=== PATIENT | male | born 1970 | race Caucasian/White ===

== ENCOUNTER 2019-11-22 05:32 | Emergency (ER) | payer SELFPAY ==
[~2019-11-22] VITALS: Ht 180.3 cm; Wt 72.6 kg
--- NOTE | 2019-11-22 06:00 | NUR ---
Dr. Obando at bedside for MSE.
[2019-11-22] MEDS ORDERED: SULFAMETH/TRIMETH 800/160 MG TABLET ONE (06:08)
[2019-11-22] MEDS ORDERED: SULFAMETH/TRIMETH 800/160 MG TABLET PO ONE (06:15)
[2019-11-22] MEDS ORDERED: OXYCODONE/APAP 5-325 MG TABLET PO ONE (06:15)
[2019-11-22] MEDS ORDERED: OXYCODONE/APAP 5-325 MG TABLET ONE (06:16)
--- NOTE | 2019-11-22 06:17 | NUR ---
Patient given written and verbal discharge instructions. Patient verbalizes understanding of instructions. Patient is ambulatory with steady gait. Refuses offer of detention placement. Patient given list of available shelters in surrounding area. Pt provided with food per pt request, and will arrange own transportation, refused all other services at this time. VSS, all belongings taken, no acute signs of distress.
[2019-11-22 06:19] VITALS: BP 120/81
== END 2019-11-22 06:20 | disposition home or self-care (01) ==
LOC: ER 05:41
DX: L02.411 Cutaneous abscess of right axilla (principal); Z59.0 Homelessness
CPT/HCPCS: A4663

== ENCOUNTER 2020-06-14 17:38 | Inpatient (IN) | payer MEDICARE ==
[~2020-06-14] VITALS: Ht 180.3 cm; Wt 69.2 kg
--- NOTE | 2020-06-14 18:57 | NUR ---
at bedside for assessment
[2020-06-14] MEDS ORDERED: IV NS 1000 ML 1,000 ML IV ONE (19:00)
[2020-06-14] MEDS: VANCOMYCIN 1G/D5W 200 ML PIGGYBACK IV ONE ×2 (19:00→19:27)
[2020-06-14] MEDS ORDERED: MORPHINE SULFATE 4 MG/1 ML DISP.SYRIN IV ONE (19:00)
[2020-06-14] MEDS ORDERED: CEFTRIAXONE 1 G in IV DEXTROSE 5% 50 ML IV ONE (19:00)
[2020-06-14] MEDS ORDERED: MORPHINE SULFATE 4 MG/1 ML DISP.SYRIN ONE (19:05)
[2020-06-14] MEDS ORDERED: VANCOMYCIN IV 200 ML ONE (19:05)
[2020-06-14] MEDS ORDERED: CEFTRIAXONE /D5W 50ML IVPB **ER PYXIS IV ONE (19:06)
--- NOTE | 2020-06-14 19:40 | NUR ---
Radiology noted int he room at this time to X-ray bilateral hands
[2020-06-14 19:44] LABS: BASOPHILS % (AUTO) 0.4 % (0.0-2.0); EOSINOPHILS # (AUTO) 0.2 K/uL (0.0-0.7); EOSINOPHILS % (AUTO) 2.3 % (0.0-7.0); HEMATOCRIT 37.1 % (36.7-47.1); HEMOGLOBIN 12.7 g/dL (12.5-16.3); LYMPHOCYTES # (AUTO) 2.5 K/uL (20.0-40.0); LYMPHOCYTES % (AUTO) 33.4 % (20.5-51.5); MEAN CORPUSCULAR HEMOGLOBIN 30.8 uug (23.8-33.4); MEAN CORPUSCULAR HGB CONC 34 g/dL (32.5-36.3); MEAN CORPUSCULAR VOLUME 89.6 fL (73.0-96.2); MONOCYTES # (AUTO) 0.5 K/uL (2.0-10.0); MONOCYTES % (AUTO) 7.2 % (0.0-11.0); NEUTROPHILS # (AUTO) 4.2 K/uL (1.8-8.9); NEUTROPHILS % (AUTO) 56.7 % (38.5-71.5); PLATELET COUNT (AUTO) 160 K/uL (152-348); RED BLOOD CELL COUNT(AUTO) 4.14 MIL/uL (4.06-5.63); WHITE BLOOD COUNT (AUTO) 7.3 K/uL (3.6-10.2)
[2020-06-14 19:48] LABS: CREATININE 0.9 mg/dL (0.6-1.3); POTASSIUM 3.7 mmol/L (3.5-5.1)
[2020-06-14 19:54] LABS: BILIRUBIN,TOTAL 0.4 mg/dL (0.2-1.0); TOTAL PROTEIN, SERUM 6.8 g/dL (6.4-8.2)
--- NOTE | 2020-06-14 21:29 | NUR ---
patient given a meal at this time, awaiting covid results
[2020-06-14] MEDS ORDERED: MORPHINE SULFATE 2 MG/1 ML DISP.SYRIN ONE (22:42)
[2020-06-14] MEDS ORDERED: MORPHINE SULFATE 2 MG/1 ML DISP.SYRIN IV ONE (22:45)
--- NOTE | 2020-06-15 00:50 | NUR ---
Pt. admitted to [facility], under care of Dr. Zuñiga Belongs List completed and all belongings sent with patient
--- NOTE | 2020-06-15 00:54 | NUR ---
Pt received from ED in stable condition. Pt is ambulatory, alert, and oriented. No s/s of acute distress noted. Pt denies SOB and pain at the moment. Right FA IV patent and intact. Safety measures in place and will continue to monitor.
[2020-06-15 01:00] VITALS: BP 101/56
[2020-06-15] MEDS ORDERED: ONDANSETRON 4 MG/2 ML VIAL IV PRN (01:00)
[2020-06-15] MEDS ORDERED: MAGNESIUM HYDROXIDE 30 ML LIQUID UDC PO PRN (01:00)
[2020-06-15] MEDS ORDERED: Z GUARD REMEDY PASTE 57 GM TUBE TOP PRN (01:00)
[2020-06-15] MEDS ORDERED: ACETAMINOPHEN 325 MG TABLET PO PRN (01:00)
--- NOTE | 2020-06-15 01:00 | NUR ---
Patient transported to [place] in stable condition. Dr. Costello aware of patient admission.
[2020-06-15] MEDS: IV NS 1000 ML 1,000 ML IV PRN ×2 (01:23→18:23)
[2020-06-15] MEDS ORDERED: PIPERACILLIN/TAZOBACTAM/D5W 100 ML IV ONE (01:26)
[2020-06-15] MEDS: PIPERACILLIN SODIUM/TAZOBACTAM 3.375 G in IV DEXTROSE 5% 50 ML IV SCH ×4 (01:28→18:16)
--- NOTE | 2020-06-15 01:30 | NUR ---
Refused thorough skin assessment other than bilateral hands for pictures. Will endorse to oncoming shift
[2020-06-15] MEDS: HYDROCODONE/APAP 5-325MG TABLET PO PRN (02:09)
[2020-06-15 04:00] VITALS: BP 114/64
[2020-06-15] MEDS: VANCOMYCIN IV 1,000 MG in IV DEXTROSE 5% 250 ML IV SCH ×3 (07:38→23:10)
--- NOTE | 2020-06-15 07:48 | NUR ---
Discussed plan of care with patient re: fluid restriction, handout for smoking cessation given, and fall precaution. Pt agreeable with plan of care. Noted right hand more edema +2, encouraged pt to have ice on hand for 20 mins on and off throughout the day. Right hand middle finger with fluid filled blister. Noted left hand index finger with scab. Wound care nurse to evaluate. Pt is in no acute distress. NA 133 discussed with pt to not drink as much water to not dilute sodium and lower sodium more. Pt agreeable with plan of care. Call light is within reach. IVF infusing as ordered no s/s of infiltrate.
[2020-06-15 11:47] VITALS: BP 96/62
[2020-06-15] MEDS: MORPHINE SULFATE 2 MG/1 ML DISP.SYRIN IV PRN ×2 (14:17→21:07)
--- NOTE | 2020-06-15 14:42 | NUR ---
Social Service Consultation 1:50pm: SW attempted to meet with this patient to complete the social services coordinator consultation. Patient was asleep in his bed. SW called out patient's name x 3, and patient finally opened his eyes. SW introduced herself. Patient stated "I'm sleeping, can you come back later" and closed his eyes again. SW to follow up with the patient at a later time.
--- NOTE | 2020-06-15 15:00 | NUR ---
Put phone in pt's room as discussion with social research assistant secondary to earlier pt had no phone and social research assistant could interview pt.
[2020-06-15 16:00] VITALS: BP 107/65
--- NOTE | 2020-06-15 19:05 | NUR ---
Pt is in no acute distress. Pt's pain managed with Morphine as ordered. Pt c/o pain on his hands. Call light is within reach.
--- NOTE | 2020-06-15 19:50 | NUR ---
PATIENT ALERT ORIENTED, NO COMPLAIN OF PAIN AT THIS TIME. CONT TO MONITOR.
[2020-06-15 20:00] VITALS: BP 118/65
[2020-06-15] MEDS ORDERED: CEFEPIME HCL 1 G VIAL ONE (21:39)
[2020-06-15] MEDS: CEFEPIME HCL 1 G in IV DEXTROSE 5% 50 ML IV SCH (21:59)
--- NOTE | 2020-06-15 23:00 | NUR ---
PATIENT REFUSED LAB DRAW, VANCO TROUGH.
--- NOTE | 2020-06-16 00:46 | NUR ---
PATIENT REFUSED MIDLINE INSERTION.
[2020-06-16 04:00] VITALS: BP 105/48
[2020-06-16] MEDS: HYDROCODONE/APAP 5-325MG TABLET PO PRN ×3 (05:55→22:22)
[2020-06-16 05:57] VITALS: BP 106/66
[2020-06-16 06:09] LABS: BASOPHILS % (AUTO) 0.3 % (0.0-2.0); EOSINOPHILS # (AUTO) 0.1 K/uL (0.0-0.7); HEMATOCRIT 40.4 % (36.7-47.1); HEMOGLOBIN 13.8 g/dL (12.5-16.3); LYMPHOCYTES # (AUTO) 2.1 K/uL (20.0-40.0); LYMPHOCYTES % (AUTO) 29.5 % (20.5-51.5); MEAN CORPUSCULAR HEMOGLOBIN 30.6 uug (23.8-33.4); MEAN CORPUSCULAR HGB CONC 34 g/dL (32.5-36.3); MEAN CORPUSCULAR VOLUME 89.6 fL (73.0-96.2); MONOCYTES # (AUTO) 0.4 K/uL (2.0-10.0); MONOCYTES % (AUTO) 5.8 % (0.0-11.0); NEUTROPHILS # (AUTO) 4.5 K/uL (1.8-8.9); NEUTROPHILS % (AUTO) 63.4 % (38.5-71.5); PLATELET COUNT (AUTO) 166 K/uL (152-348); RED BLOOD CELL COUNT(AUTO) 4.51 MIL/uL (4.06-5.63); WHITE BLOOD COUNT (AUTO) 7.2 K/uL (3.6-10.2)
--- NOTE | 2020-06-16 06:16 | NUR ---
PATIENT ALERT ORIENTED, NO SOB NO CHEST PAIN, CONT PAIN MANAGEMENT OF R MIDDLE/R SMALL FINGER WOUND, AND L INDEX/L THUMB WOUND. PATIENT HAS EPISODE OF NON COOPERATIVE WITH CARE, NEEDS LOTS OF ENCOURAGEMENT. CONT TO MONITOR.
[2020-06-16 06:26] LABS: BILIRUBIN,TOTAL 0.6 mg/dL (0.2-1.0); CREATININE 0.9 mg/dL (0.6-1.3); MAGNESIUM 2.4 mg/dL (1.8-2.4); PHOSPHOROUS 2.9 mg/dL (2.5-4.9); POTASSIUM 4.6 mmol/L (3.5-5.1)
[2020-06-16 06:33] LABS: THYROID STIMULATING HORMONE 0.253 mIU/mL (0.358-3.740)
[2020-06-16] MEDS: VANCOMYCIN IV 1,000 MG in IV DEXTROSE 5% 250 ML IV SCH ×3 (06:43→23:07)
--- NOTE | 2020-06-16 07:25 | NUR ---
Received patient awake and alert in bed. Patient denies pain and discomfort. No S/S of acute distress. Bed in lowest position, side rails up x2, call light within reach. Will continue to monitor.
[2020-06-16] MEDS: CEFEPIME HCL 1 G in IV DEXTROSE 5% 50 ML IV SCH ×3 (07:33→22:15)
[2020-06-16] MEDS: NICOTINE 21 MG/24HR PATCH TD SCH (08:49)
[2020-06-16 11:32] VITALS: BP 104/68
--- NOTE | 2020-06-16 11:42 | NUR ---
Rock Crusher Consultation: 11:10am: SW attempted to meet with this patient today, since SW was unsuccessful with completing an assessment yesterday (see SS note dated 06/15). Patient was awake, and receptive to meeting with this SW. Patient is a 49 year old male, awake, alert, oriented x 4. Per ED physician's notes, patient came to the ED on 06/14 complaining of pain and swelling of his right middle finger. Patient told this SW that he could not remember what may have caused the swelling, but stated that maybe his finger got infected when he was collecting cans for recycling. Patient states that he has been homeless for the past 2 years, living on the streets. Patient reports not having any friends or family to contact. SW verified emergency contact information listed on patient's face sheet (B[place]) and patient stated he does not know who that is. Patient stated "maybe it was someone I knew at one point". Patient stated Brendan is not an emergency contact for him, and that he is responsible for himself. Patient reported being independent with his ADL's. Patient has Medicare insurance, and stated that he receives SSD. Patient states he is not employed. Patient reports no medical problems, however states he has been diagnosed with PTSD, Bipolar Disorder, and Depression. Patient states he was taking Paxil and Seroquel, but has not taken his medications for several months due to not being able to refill the prescriptions. Patient reports not having a PCP or a psychiatrist. Patient reports no hx of psychiatric hospitalizations. Patient reports no SI or HI. Patient reports no hallucinations. 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 Patient stated he has not been in treatment programs for his drinking. Patient denied use of illegal drugs, however stated that he smokes a couple of cigarettes a day. Patient was engaged in dialogue with this SW. Patient maintained appropriate eye contact, and was cooperative. Patient's speech was clear, thought process and content with clear. Patient appearance/grooming was fair. SW generated a discussion about discharge plans with the patient, discussing community resources available for the patient. Patient was receptive to receiving the homeless resource packet from this SW. SW stated that SW will discuss discharge plans/options with case management, and will work with case management in assisting patient with a proper discharge plan. Patient was in agreement. SW provided the homeless resource packet to the patient, which included the following information: a list of year round shelters [facility] [address], ; [facility] [address] [facility], ; and [facility] [address] [facility], [phone], along with resources for places to go for food, showers, substance abuse treatment, mental health services, community medical clinics, and pharmacies. These include the following: the [facility] homeless directory which provides a list of places that individuals can go to throughout the week for hot meals, sack lunches, food pantries, and showers; a list of mental health clinics: [facility] [address] [place] [address], ; [facility] [address] [place] [address], ; [facility] [address] [place] [address], ; a list of medical clinics: [facility] [address] [facility] [address], [place], ; [facility] [address] [facility], [facility] [place] [address]; [facility] [address] [place] [place] [address], ; and a list of substance abuse programs: [facility] Substance Abuse Self-helpline ; [facility] ; [facility] ; [facility] ; [facility] ; [facility] [phone]; [facility] [phone], a list of locations of pharmacies. JEREMY discussed above with nurse charge rn Merly. Dr. Curry also present on the unit. An order for a psychiatric consultation was obtained from Dr. Curry, and RN Peggy to follow-up on this order. SW to work with case management, as needed, to ensure a safe and proper discharge plan.
--- NOTE | 2020-06-16 11:45 | NUR ---
WOUND CARE CONSULT: PT PRESENTS WITH SWELLING AND SOME DRY SCAB ON FINGERS, PRESENT ON ADMISSION. NO DRAINAGE NOTED. PER DR NARAYANAN, PT TO BE FOLLOWED BY I.D. FOR FINGERS. WILL SEE PRN.
[2020-06-16] MEDS: MORPHINE SULFATE 2 MG/1 ML DISP.SYRIN IV PRN ×2 (15:54→20:19)
[2020-06-16 16:00] VITALS: BP 103/51
[2020-06-16 20:16] VITALS: BP 106/61
[2020-06-16] MEDS: IV NS 1000 ML 1,000 ML IV PRN (20:19)
--- NOTE | 2020-06-16 20:30 | NUR ---
Resumed care from outgoing nurse. Patient sleeping at this time with IVF infusing on LUE Mid line. No s/s of respiratory distress. Safety measures and fall prevention maintained,
[2020-06-16] MEDS ORDERED: QUETIAPINE FUMARATE 100 MG TABLET PO SCH (21:00)
[2020-06-17 04:55] VITALS: BP_SYST 104; BP_SYST 82; BP_DIAS 43; BP_DIAS 60
[2020-06-17] MEDS: CEFEPIME HCL 1 G in IV DEXTROSE 5% 50 ML IV SCH ×2 (05:14→14:17)
[2020-06-17] MEDS: VANCOMYCIN IV 1,000 MG in IV DEXTROSE 5% 250 ML IV SCH ×2 (06:26→16:57)
--- NOTE | 2020-06-17 06:45 | NUR ---
Shift End Report: Patient very argumentative, uncooperative, resistive to care. Mid line is very positional, kept on beeping/alarming every time he turned on his left side/bending his elbow, patient argued and refused to stay on his back when instructed to. Bp drop to 82/43 and went up when he's on his back to 104/68 Charge Nurse aware.
--- NOTE | 2020-06-17 07:30 | NUR ---
Received patient resting in bed, awake intermittently alert and oriented. Left upper arm midline running NS at 75 ml/hr. Jessicaetn has blisters on the left thumb index that popped and also on the right middle and pinky fingers. Safety precautions in place with call light and belongings within reach. Will continue to monitor
[2020-06-17 08:32] VITALS: BP 99/52
[2020-06-17] MEDS: NICOTINE 21 MG/24HR PATCH TD SCH (08:41)
[2020-06-17] MEDS ORDERED: PAROXETINE HCL 20 MG TABLET PO SCH (09:00)
--- NOTE | 2020-06-17 09:42 | NUR ---
Patient's midline keeps beeping. Tried flushing and repositioning. Will continue to monitor.
[2020-06-17] MEDS: MORPHINE SULFATE 2 MG/1 ML DISP.SYRIN IV PRN ×2 (10:41→17:09)
[2020-06-17] MEDS ORDERED: QUETIAPINE FUMARATE 25 MG TABLET PO PRN (10:45)
--- NOTE | 2020-06-17 15:00 | NUR ---
Patient refused to have his blood drawn by quality assurance qa lab technician, he says he doesn't want us to mess with his midline because it had so many problems over night. Will continue to monitor.
[2020-06-17 15:47] VITALS: BP 112/65
--- NOTE | 2020-06-17 17:54 | NUR ---
Gave report to Teresa at [place] [facility] Gave MD orders for continuation of Vanomycin and Cefipime for 7 days. Will forward discharge paperwork with patient
--- NOTE | 2020-06-17 18:27 | NUR ---
Patient left the floor on a gurney with all his belongings, he had all his discharge paperwork sent with him also. Patient left in stable condition vitals were 112/64, heart rate 88, pulse ox 98 RR 18 and temperature 97.7. Report given to facility that patient will be discharge to at [facility].
== END 2020-06-17 18:00 | DRG 603 ==
LOC: ER 17:40 → MEDSURG3 23:55
PROVIDERS: ADMIT Internal Medicine
PROC: 05HY33Z Insertion of Infusion Device into Upper Vein, Percutaneous Approach (ICD-10-PCS; principal; 2020-06-17)
DX: L03.011 Cellulitis of right finger (principal); M65.841 Other synovitis and tenosynovitis, right hand; Z59.0 Homelessness; F31.9 Bipolar disorder, unspecified; Z20.828 Contact with and (suspected) exposure to other viral communicable diseases; Z87.891 Personal history of nicotine dependence; R74.01 Elevation of levels of liver transaminase levels
CPT/HCPCS: 36415; 73130; 83735; 84100; 84443; 85025; 86803; A4663; G0378; J0692; J0696; J2270; J2543; J3370; J7030; J7060

== ENCOUNTER 2020-06-22 19:23 | Inpatient (IN) | payer MEDICARE ==
[~2020-06-22] VITALS: Ht 182.9 cm; Wt 73.1 kg
--- NOTE | 2020-06-22 19:38 | NUR ---
Dr Scott at bedside for MSE at Room 4A.
[2020-06-22] MEDS ORDERED: QUET100T PO (19:40)
[2020-06-22] MEDS ORDERED: CEFE1VIA3 IV (19:40)
[2020-06-22] MEDS ORDERED: PARO-142 PO (19:40)
[2020-06-22] MEDS ORDERED: VANC125C2 (19:40)
[2020-06-22] MEDS ORDERED: ACET-2154 PO (19:40)
[2020-06-22] MEDS ORDERED: MORP5SYR IJ (19:40)
[2020-06-22] MEDS ORDERED: ONDA4TAB5 PO (19:40)
[2020-06-22] MEDS ORDERED: MORPHINE SULFATE 4 MG/1 ML DISP.SYRIN IV ONE ×2 (19:45→23:00)
[2020-06-22] MEDS ORDERED: PIPERACILLIN SODIUM/TAZOBACTAM 3.375 G in IV DEXTROSE 5% 50 ML IV ONE (19:45)
[2020-06-22] MEDS ORDERED: ONDANSETRON 4 MG/2 ML VIAL IV ONE (19:45)
[2020-06-22] MEDS ORDERED: MORPHINE SULFATE 4 MG/1 ML DISP.SYRIN ONE ×2 (19:56→23:02)
[2020-06-22] MEDS ORDERED: PIPERACILLIN/TAZOBACTAM/D5W 50 ML IV ONE (19:57)
[2020-06-22] MEDS ORDERED: ONDANSETRON 4 MG/2 ML VIAL ONE (19:57)
[2020-06-22 20:23] LABS: BASOPHILS % (AUTO) 0.6 % (0.0-2.0); EOSINOPHILS # (AUTO) 0.1 K/uL (0.0-0.7); EOSINOPHILS % (AUTO) 2.7 % (0.0-7.0); HEMATOCRIT 39.7 % (36.7-47.1); HEMOGLOBIN 13.5 g/dL (12.5-16.3); LYMPHOCYTES % (AUTO) 43.5 % (20.5-51.5); MEAN CORPUSCULAR HEMOGLOBIN 30.7 uug (23.8-33.4); MEAN CORPUSCULAR HGB CONC 34 g/dL (32.5-36.3); MEAN CORPUSCULAR VOLUME 90.5 fL (73.0-96.2); MONOCYTES # (AUTO) 0.4 K/uL (2.0-10.0); MONOCYTES % (AUTO) 8.8 % (0.0-11.0); NEUTROPHILS % (AUTO) 44.4 % (38.5-71.5); PLATELET COUNT (AUTO) 165 K/uL (152-348); RED BLOOD CELL COUNT(AUTO) 4.38 MIL/uL (4.06-5.63); WHITE BLOOD COUNT (AUTO) 4.5 K/uL (3.6-10.2)
[2020-06-22 20:27] LABS: CREATININE 0.9 mg/dL (0.6-1.3); POTASSIUM 4.1 mmol/L (3.5-5.1)
[2020-06-22 20:33] LABS: BILIRUBIN,DIRECT 0.2 mg/dL (0.0-0.2); BILIRUBIN,TOTAL 0.2 mg/dL (0.2-1.0); TOTAL PROTEIN, SERUM 6.7 g/dL (6.4-8.2)
[2020-06-22] MEDS ORDERED: IV NORMAL SALINE 1000 ML BAG IV ONE (23:15)
--- NOTE | 2020-06-22 23:30 | NUR ---
Several hospitals were contacted regarding Transfer to higher level of care Addendum: 06/23/20 at 0004 by CASSIA Several hospitals were contacted for possible transfer/consult with hand surgery regarding patient's R middle finger Flexor Tenosynovitis: 2108: [facility], S/W Barbi RN: No beds available and no hand surgeon on-call available for consult. 2119: [facility], S/W Celeste: No hand surgeon on-call available for consult. 2129: [facility], S/w Estimator And Drafter Supervisor who transferred me to and was unable to reach anybody, only had a voicemail. 2139: [facility] S/W Marisa: No hand surgeon on-call available for consult. 2144: [facility], S/W Taylor RN: No hand surgeon on-call available for consult. 2155: [facility], s/w Eliud RN: No hand surgeon on-call available for consult. 2156: [facility], S/w Phuong RN: No hand surgeon on board. 2199: [facility], S/w Omayra RN: Requested Facesheet and clinicals. May have possible hand surgeon. But documents needs to be reviewed first. 2214: Dr. Costello s/w Dr. Scott, and both agreed if no specialist can see patient tonight/in AM, he can see patient by Monday. 2229: Omayra ROJAS/[facility] confirmed that she received all the paperwork. Pending review at this time. 2300: Per Omayra ROJAS/[facility]. [facility], patient has been put on the waitlist for transfer in the AM, but no guarantees at this time. Requested if Dr. Scott can consult with hand surgeon juanita in the meantime. Omayra ROJAS will contact resident/hand surgeon. 2330: Per Omayra ROJ[facility]. Two attempts were done to contact hand surgeon, but patient still pending transfer or admission until hand surgeon reviews documents and accepts patient. Dr. Scott is aware of these phone calls. [facility] and will receive needed IV ATB, until he can transfer to a facility with a specialist hand surgeon on board.
--- NOTE | 2020-06-22 23:50 | NUR ---
Spoke with opr#[id number] at [facility] who stated there are no beds available for HLOC for hand surg at this time.
--- NOTE | 2020-06-23 00:20 | NUR ---
Patient admitted to Med/Surg by Deyvi Galindo DNP. Dx: Hand Cellulitis/Flexor Tenosynovitis. Pt is in stable condition. Belongings are all accounted for.
--- NOTE | 2020-06-23 00:40 | NUR ---
Report given to Eileen ROJAS .
--- NOTE | 2020-06-23 00:53 | NUR ---
Pt transported by Eusebio ROJAS to Room 321, left ER in stable condition. MRSA swab specimen sent to the lab.
[2020-06-23] MEDS ORDERED: ZOLPIDEM 5 MG TABLET PO PRN (01:00)
[2020-06-23] MEDS ORDERED: MAGNESIUM HYDROXIDE 30 ML LIQUID UDC PO PRN (01:00)
[2020-06-23] MEDS ORDERED: ACETAMINOPHEN 325 MG TABLET PO PRN (01:00)
[2020-06-23] MEDS ORDERED: ONDANSETRON 4 MG/2 ML VIAL IV PRN (01:00)
[2020-06-23] MEDS ORDERED: Z GUARD REMEDY PASTE 57 GM TUBE TOP PRN (01:00)
--- NOTE | 2020-06-23 01:00 | NUR ---
RECEIVED PT FROM ER VIA [facility].UNDER THE CARE OF DR. MAGDALENO LOMBARDI. DX: HAND INFECTION. PT IN NO ACUTE DISTRESS. IV INTACT. HALFWAY ASSESSMENT DONE. DRESSING CHANGED. ADMISSION PROCESS AND CARE PLAN INITIATED. PT COMPLAINING OF 10/10 PAIN SCALE FOR HIS HANDS.SAFETY AND COMFORT PROVIDED. WILL CONTINUE TO MONITOR.
[2020-06-23] MEDS ORDERED: VANCOMYCIN IV 1,500 MG in IV DEXTROSE 5% 500 ML IV ONE (01:15)
[2020-06-23 01:19] VITALS: BP 91/54
[2020-06-23] MEDS ORDERED: CEFEPIME HCL 1 G VIAL ONE (02:03)
[2020-06-23] MEDS ORDERED: VANCOMYCIN HCL 500 MG VIAL ONE (02:04)
[2020-06-23] MEDS ORDERED: VANCOMYCIN IV 200 ML ONE (02:04)
[2020-06-23] MEDS: MORPHINE SULFATE 4 MG/1 ML DISP.SYRIN IV PRN ×4 (02:17→20:21)
[2020-06-23 05:50] VITALS: BP 96/60
[2020-06-23] MEDS ORDERED: CEFEPIME HCL 1 G VIAL IV SCH (06:00)
--- NOTE | 2020-06-23 06:27 | NUR ---
PT SLEPT INTERMITTENTLY. PT GIVEN MORPHINE AT 0217H FOR 10/10 PAIN SCALE FOR HIS HAND PAIN( RIGHT FINGER PAIN). AFTER AND HOUR PT STATED IT FELT A BIT BETTER. PT STABLE .ER NURSE CALLED AND UPDATED ME THAT [facility] DOESN[facility]T STILL HAVE BED FOR THE PT. 76SHOULD ORDER CASE MANAGEMENT CONSULT FOR PT. PT VITAL SIGNS WITHIN NORMAL LIMIT. PT IN NO ACUTE DISTRESS. PRESCRIBED MEDICATION GIVEN AND PT TOLERATED IT WELL. SAFETY AND COMFORT PROVIDED.ALL NEEDS ARE MET. WILL ENDORSE TO INCOMING NURSE FOR CONTINUITY OF CARE.
--- NOTE | 2020-06-23 06:59 | NUR ---
PT GIVEN 0659H MORPHINE PRN FOR 10/10 PAIN SCALE. VS STABLE. PT TOLERATED IT WELL WILL CONTINUE TO MONITOR.
[2020-06-23 07:56] VITALS: BP 102/57
--- NOTE | 2020-06-23 08:00 | NUR ---
Noted swelling on salvador hand. Discussed plan for today re: possible d/c to [facility] for transfer, pain management, and fall precautions. Pt agreeable with plan of care. Bed alarm on. Pt is in no acute distress. Call light is within reach.
[2020-06-23] MEDS: VANCOMYCIN IV 1,000 MG in IV DEXTROSE 5% 250 ML IV SCH ×2 (08:39→16:25)
[2020-06-23] MEDS ORDERED: PAROXETINE HCL 20 MG TABLET PO SCH (09:00)
[2020-06-23 09:05] LABS: CREATININE 0.9 mg/dL (0.6-1.3); POTASSIUM 4.2 mmol/L (3.5-5.1)
[2020-06-23] MEDS ORDERED: CEFEPIME HCL 1 G in IV DEXTROSE 5% 50 ML IV SCH (14:00)
[2020-06-23 15:24] VITALS: BP 93/58
--- NOTE | 2020-06-23 16:48 | NUR ---
Received call from Jesus POOL from [facility] pt is accepted to [address] Phone number to give report [phone] CONKLIN to be accepting doctor at [facility].
--- NOTE | 2020-06-23 18:00 | NUR ---
Pt pain managed with Morphine. Pt is in no acute distress. Call light is within reach. Awaiting parts picker ETA @[phone] no other available earlier time.
--- NOTE | 2020-06-23 20:40 | NUR ---
Report given to Maxime ROJAS at [facility] regarding patient transfer. Patient is stable. No s/s of distress. Paperwork given to Maikel
--- NOTE | 2020-06-23 20:58 | NUR ---
Pt transferred to [facility] via ambulance [facility]. Pt in stable condition. No s/s of acute distress. Pt belongings in hand. Report given to receiving staff.
[2020-06-23] MEDS ORDERED: QUETIAPINE FUMARATE 100 MG TABLET PO SCH (21:00)
[2020-06-23 21:11] VITALS: BP 98/66
== END 2020-06-23 20:50 | disposition short-term general hospital (02) | DRG 558 ==
LOC: ER 19:23 → MEDSURG3 06-23 00:42
PROVIDERS: ADMIT Family Medicine; ATTEND Family Medicine
DX: M65.841 Other synovitis and tenosynovitis, right hand (principal); E44.0 Moderate protein-calorie malnutrition; F17.210 Nicotine dependence, cigarettes, uncomplicated; Z66 Do not resuscitate; E88.09 Other disorders of plasma-protein metabolism, not elsewhere classified; F31.9 Bipolar disorder, unspecified; B19.20 Unspecified viral hepatitis C without hepatic coma; Z71.6 Tobacco abuse counseling; Z68.21 Body mass index [BMI] 21.0-21.9, adult
CPT/HCPCS: 36415; 71045; 73140; 85025; 85730; 93005; A4663; G0378; J0692; J2270; J2405; J2543; J3370; J7040; J7060